=== PATIENT | female | born 1955 | race Caucasian/White ===

== ENCOUNTER 2017-04-03 13:32 | Inpatient (IN) | payer BC ==
[~2017-04-03] VITALS: Ht 167.6 cm; Wt 147.3 kg
[~2017-04-03 13:32] MED LIST: ERGO500017 PO; ESCI20TA PO; FURO20TA3 PO; LORA1TAB PO; LOSA100T6 PO; MILK THISTLE PO; SILD20TA2 PO
[2017-04-03] MEDS ORDERED: SODIUM CHLORIDE FLUSH 10ML SYR IVF ONE (14:00)
[2017-04-03] MEDS ORDERED: MAALOX/HYOSCYAMINE/LIDOCAINE 45 ML BOTTLE PO ONE (14:30)
[2017-04-03] MEDS ORDERED: MAALOX/HYOSCYAMINE/LIDOCAINE 45 ML BOTTLE ONE (14:34)
[2017-04-03 14:49] LABS: BLOOD UREA NITROGEN 15 mg/dL (7-18)
[2017-04-03 14:54] LABS: ASPARTATE AMINO TRANSFERASE 130 U/L (15-37)
[2017-04-03 14:56] LABS: IS PT STATUS REG ER OR PRE ER? YES
[2017-04-03 15:10] LABS: DIFF TOTAL CELLS COUNTED 100 CELL DIFF
[2017-04-03 15:13] LABS: LARGE PLATELETS 1+
[2017-04-03 15:14] LABS: VERIFY COUNTS? YES
[2017-04-03] MEDS ORDERED: LORazepam 2 MG/ML, 1ML ONE (16:36)
[2017-04-03] MEDS ORDERED: LORazepam 2 MG/ML, 1ML IVPush ONE (17:00)
[2017-04-03] MEDS ORDERED: OMNIPAQUE 350 MG/ML, 150 ML BOTTLE ONE (17:10)
[2017-04-03] MEDS ORDERED: DOCUSATE 100 MG CAPSULE PO PRN (19:30)
[2017-04-03] MEDS ORDERED: LABETALOL 5MG/ML 40ML VIAL IVPush PRN (19:30)
[2017-04-03] MEDS ORDERED: ACETAMINOPHEN 325 MG TABLET PO PRN (19:30)
[2017-04-03] MEDS ORDERED: PANTOPRAZOLE 40 MG IV IVPush ONE (19:30)
[2017-04-03 20:19] VITALS: BP 157/84
[2017-04-03] MEDS ORDERED: THIAMINE 200 MG in DEXTROSE 5% 50 ML IVPB ONE (20:30)
[2017-04-03] MEDS ORDERED: FOLIC ACID 1 MG TABLET PO ONE (20:30)
[2017-04-03] MEDS ORDERED: LORazepam 1MG TABLET PO PRN ×4 (20:30)
[2017-04-03] MEDS: SILDENAFIL 20 MG TABLET PO SCH (21:00)
[2017-04-03 21:18] LABS: IS PT STATUS REG ER OR PRE ER? NO
[2017-04-03] MEDS ORDERED: MAGNESIUM SULFATE PMX 4GM/100M 100 ML IV ONE (22:00)
[2017-04-03] MEDS: LORazepam 0.5MG TABLET PO PRN (22:43)
[2017-04-03] MEDS: HEPARIN 5,000 UNITS/ML, 1ML SQ SCH (23:45)
[2017-04-04 01:50] VITALS: BP 149/79
[2017-04-04 03:12] LABS: IS PT STATUS REG ER OR PRE ER? NO
[2017-04-04 06:10] LABS: BLOOD UREA NITROGEN 16 mg/dL (7-18)
[2017-04-04 07:17] VITALS: BP 130/74
[2017-04-04] MEDS: HEPARIN 5,000 UNITS/ML, 1ML SQ SCH ×3 (08:40→23:38)
[2017-04-04] MEDS: LOSARTAN 50MG TABLET PO SCH (08:41)
[2017-04-04] MEDS: CITALOPRAM 20 MG TABLET PO SCH (08:41)
[2017-04-04] MEDS: MULTIVITAMINS/MINERALS TABLET PO SCH (08:41)
[2017-04-04] MEDS: FUROSEMIDE 20 MG TABLET PO SCH (08:41)
[2017-04-04] MEDS: SILDENAFIL 20 MG TABLET PO SCH ×3 (08:42→19:44)
[2017-04-04] MEDS ORDERED: MULTIVITAMIN 1 TABLET PO SCH (09:57)
[2017-04-04] MEDS: FOLIC ACID 1 MG TABLET PO SCH (11:38)
[2017-04-04] MEDS: THIAMINE 100MG TABLET PO SCH (11:38)
[2017-04-04 12:54] VITALS: BP 137/83
[2017-04-04] MEDS: LORazepam 0.5MG TABLET PO PRN (15:07)
[2017-04-04 18:23] VITALS: BP 135/77
[2017-04-04] MEDS: TEMAZEPAM 15 MG CAPSULE PO PRN (23:45)
[2017-04-05 00:49] VITALS: BP 146/66
[2017-04-05 05:45] LABS: BLOOD UREA NITROGEN 16 mg/dL (7-18)
[2017-04-05 05:48] LABS: ASPARTATE AMINO TRANSFERASE 63 U/L (15-37)
[2017-04-05 07:47] VITALS: BP 133/77
[2017-04-05] MEDS: SILDENAFIL 20 MG TABLET PO SCH ×3 (09:07→22:10)
[2017-04-05] MEDS: HEPARIN 5,000 UNITS/ML, 1ML SQ SCH ×3 (09:08→23:38)
[2017-04-05] MEDS: LOSARTAN 50MG TABLET PO SCH (09:08)
[2017-04-05] MEDS: FOLIC ACID 1 MG TABLET PO SCH (09:08)
[2017-04-05] MEDS: MULTIVITAMINS/MINERALS TABLET PO SCH (09:08)
[2017-04-05] MEDS: THIAMINE 100MG TABLET PO SCH (09:08)
[2017-04-05] MEDS: FUROSEMIDE 20 MG TABLET PO SCH (09:08)
[2017-04-05] MEDS: CITALOPRAM 20 MG TABLET PO SCH (09:09)
[2017-04-05] MEDS ORDERED: ONDANSETRON 2MG/ML, 2ML IVPush PRN (11:00)
[2017-04-05 13:06] VITALS: BP 118/72
[2017-04-05 14:20] LABS: OCCBLD OBC PASS
[2017-04-05] MEDS: LORazepam 0.5MG TABLET PO PRN ×2 (16:46→22:16)
[2017-04-05 20:00] VITALS: BP 128/79
[2017-04-05] MEDS: TEMAZEPAM 15 MG CAPSULE PO PRN (22:10)
[2017-04-06 00:41] VITALS: BP 127/75
[2017-04-06] MEDS: TEMAZEPAM 15 MG CAPSULE PO PRN (00:45)
[2017-04-06 05:39] LABS: ASPARTATE AMINO TRANSFERASE 50 U/L (15-37); BLOOD UREA NITROGEN 17 mg/dL (7-18)
[2017-04-06 09:45] VITALS: BP 123/81
[2017-04-06] MEDS: HEPARIN 5,000 UNITS/ML, 1ML SQ SCH ×2 (09:46→15:33)
[2017-04-06] MEDS: LOSARTAN 50MG TABLET PO SCH (09:46)
[2017-04-06] MEDS: CITALOPRAM 20 MG TABLET PO SCH (09:47)
[2017-04-06] MEDS: MULTIVITAMINS/MINERALS TABLET PO SCH (09:48)
[2017-04-06] MEDS: SILDENAFIL 20 MG TABLET PO SCH ×2 (09:48→15:33)
[2017-04-06] MEDS: FOLIC ACID 1 MG TABLET PO SCH (09:48)
[2017-04-06] MEDS: FUROSEMIDE 20 MG TABLET PO SCH (09:48)
[2017-04-06] MEDS: THIAMINE 100MG TABLET PO SCH (09:48)
[2017-04-06 15:06] VITALS: BP 109/69
[2017-04-06] MEDS ORDERED: FOLI-17 PO (17:20)
[2017-04-06] MEDS ORDERED: THIA100T6 PO (17:20)
[2017-04-06] MEDS ORDERED: MULT-484 PO (17:20)
[2017-04-06] MEDS ORDERED: OMEP-110 PO (17:24)
== END 2017-04-06 20:21 | disposition home or self-care (01) | DRG 189 ==
LOC: ED 18:00 → EDIP 18:04 → ED 18:44 → 5SO 20:00
PROVIDERS: ADMIT Internal Medicine; ATTEND Internal Medicine
PROC: 5A09357 Assistance with Respiratory Ventilation, Less than 24 Consecutive Hours, Continuous Positive Airway Pressure (ICD-10-PCS; principal; 2017-04-03)
DX: J96.21 Acute and chronic respiratory failure with hypoxia (principal); E44.0 Moderate protein-calorie malnutrition; K50.90 Crohn's disease, unspecified, without complications; Z68.43 Body mass index [BMI] 50.0-59.9, adult; K21.9 Gastro-esophageal reflux disease without esophagitis; I11.9 Hypertensive heart disease without heart failure; I27.2 Other secondary pulmonary hypertension; D69.6 Thrombocytopenia, unspecified; F10.20 Alcohol dependence, uncomplicated; E66.01 Morbid (severe) obesity due to excess calories; E83.52 Hypercalcemia; G47.33 Obstructive sleep apnea (adult) (pediatric); R73.03 Prediabetes; D53.9 Nutritional anemia, unspecified; F32.9 Major depressive disorder, single episode, unspecified; G89.29 Other chronic pain; J84.10 Pulmonary fibrosis, unspecified; M19.90 Unspecified osteoarthritis, unspecified site; Z77.22 Contact with and (suspected) exposure to environmental tobacco smoke (acute) (chronic); Z99.81 Dependence on supplemental oxygen; Z90.710 Acquired absence of both cervix and uterus; Z98.84 Bariatric surgery status; Z90.49 Acquired absence of other specified parts of digestive tract; Z81.1 Family history of alcohol abuse and dependence; Z79.899 Other long term (current) drug therapy
CPT/HCPCS: 36415; 71010; 71275; 80048; 80053; 80076; 82272; 82330; 82607; 82746; 83036; 83735; 83880; 83970; 84439; 84443; 84484; 85025; 85379; 85610; 85730; 93005; 93306; 94660; 96374; J1644; J2405; J3411; Q9967; C9113; J2060; J3475

== ENCOUNTER → 2017-05-24 | Outpatient (CLI) | payer BC ==
[~2017-05-24] MED LIST changes: +FOLI-17 PO; +MULT-484 PO; +OMEP-110 PO; +THIA100T6 PO
== END | disposition home or self-care (01) ==
LOC: CVU 15:42
PROVIDERS: ATTEND Internal Medicine Critical Care Medicine
DX: I35.0 Nonrheumatic aortic (valve) stenosis (principal); I51.7 Cardiomegaly; I10 Essential (primary) hypertension
CPT/HCPCS: 93306

== ENCOUNTER → 2017-06-12 | Outpatient (CLI) | payer BC | END | disposition home or self-care (01) | LOC: CFH 10:43 | PROVIDERS: ATTEND Registered Nurse Registered Nurse First Assistant | DX: M51.36 Other intervertebral disc degeneration, lumbar region (principal); G89.29 Other chronic pain | CPT/HCPCS: 72110 ==

== ENCOUNTER 2017-07-20 13:43 | Inpatient (IN) | payer BC ==
[~2017-07-20] VITALS: Ht 170.2 cm; Wt 138.0 kg
[2017-07-20] MEDS ORDERED: SODIUM CHLORIDE FLUSH 10ML SYR IVF ONE (15:00)
[2017-07-20 15:08] LABS: HEMATOCRIT 37.4 % (34.6-47.8); HEMOGLOBIN 12.6 g/dL (11.7-16.4); WHITE BLOOD COUNT 7.1 x10^3/uL (3.4-10)
[2017-07-20 15:21] LABS: ASPARTATE AMINO TRANSFERASE 49 U/L (15-37); BLOOD UREA NITROGEN 21 mg/dL (7-18)
[2017-07-20 15:27] LABS: IS PT STATUS REG ER OR PRE ER? YES
[2017-07-20] MEDS ORDERED: OMNIPAQUE 350 MG/ML, 100ML BOTTLE ONE (16:23)
[2017-07-20] MEDS ORDERED: FURO20TA3 PO (17:00)
[2017-07-20] MEDS ORDERED: FUROSEMIDE 40 MG/4 ML IV ONE (17:00)
[2017-07-20] MEDS ORDERED: ENALAPRILAT 1.25 MG/ML, 2ML IV ONE (17:00)
[2017-07-20] MEDS ORDERED: FUROSEMIDE 40 MG/4 ML ONE (17:02)
[2017-07-20] MEDS ORDERED: ENALAPRILAT 1.25 MG/ML, 2ML ONE (17:02)
[2017-07-20] MEDS ORDERED: DOCUSATE 100 MG CAPSULE PO PRN (18:00)
[2017-07-20] MEDS ORDERED: POLYETHYLENE GLYCOL 17 GM PACKET PO PRN (18:00)
[2017-07-20] MEDS ORDERED: ENALAPRILAT 1.25 MG/ML, 2ML IV PRN (18:00)
[2017-07-20] MEDS ORDERED: BISACODYL 10 MG SUPP PR PRN (18:00)
[2017-07-20] MEDS ORDERED: ONDANSETRON ODT 4 MG PO PRN (18:00)
[2017-07-20] MEDS ORDERED: ONDANSETRON 2MG/ML, 2ML IVPush PRN (18:00)
[2017-07-20 18:30] VITALS: BP 182/86
[2017-07-20] MEDS ORDERED: LORazepam 1MG TABLET ONE ×3 (18:54→22:53)
[2017-07-20] MEDS: LORazepam 0.5MG TABLET PO PRN ×3 (18:59→22:55)
[2017-07-20] MEDS: SILDENAFIL 20 MG TABLET PO SCH ×2 (21:54→22:00)
[2017-07-20] MEDS: LOSARTAN 50MG TABLET PO SCH (21:54)
[2017-07-20] MEDS: ENOXAPARIN 40 MG/0.4 ML SQ SCH (21:54)
[2017-07-20] MEDS: SODIUM CHLORIDE NASAL SPRAY 45ML BOTTLE NAS SCH (21:59)
[2017-07-21] MEDS ORDERED: METHOCARBAMOL 750 MG TABLET PO ONE (01:00)
[2017-07-21 04:08] VITALS: BP 140/78
[2017-07-21 05:01] LABS: HEMATOCRIT 38.3 % (34.6-47.8); WHITE BLOOD COUNT 8.6 x10^3/uL (3.4-10)
[2017-07-21 05:02] LABS: BLOOD UREA NITROGEN 24 mg/dL (7-18)
[2017-07-21 05:05] LABS: ASPARTATE AMINO TRANSFERASE 42 U/L (15-37)
[2017-07-21 06:42] VITALS: BP 162/86
[2017-07-21 08:02] VITALS: BP 132/77
[2017-07-21] MEDS ORDERED: TEMPLATE NON-FORMULARY MED. (Losartan Potassium** 100 MG) PO SCH (09:00)
[2017-07-21] MEDS: SILDENAFIL 20 MG TABLET PO SCH ×3 (09:00→21:37)
[2017-07-21] MEDS: SODIUM CHLORIDE NASAL SPRAY 45ML BOTTLE NAS SCH ×2 (10:03→21:15)
[2017-07-21] MEDS: FUROSEMIDE 40 MG/4 ML IV SCH (10:03)
[2017-07-21] MEDS: FOLIC ACID 1 MG TABLET PO SCH (10:04)
[2017-07-21] MEDS: CITALOPRAM 20 MG TABLET PO SCH (10:04)
[2017-07-21] MEDS: OMEPRAZOLE 20 MG CAPSULE.DR PO SCH (10:04)
[2017-07-21] MEDS: LOSARTAN 50MG TABLET PO SCH ×2 (10:04→15:29)
[2017-07-21] MEDS: THIAMINE 100MG TABLET PO SCH (10:04)
[2017-07-21] MEDS: LORazepam 0.5MG TABLET PO PRN ×3 (10:05→18:38)
[2017-07-21] MEDS: AMLODIPINE 5 MG TABLET PO SCH (14:00)
[2017-07-21] MEDS: CALCIUM CARBONATE 500 MG TAB.CHEW PO SCH ×2 (15:28→21:15)
[2017-07-21 15:32] VITALS: BP 144/77
[2017-07-21 19:01] VITALS: BP 148/80
[2017-07-21] MEDS: TEMAZEPAM 30 MG CAPSULE PO PRN (21:15)
[2017-07-21] MEDS: ACETAMINOPHEN 325 MG TABLET PO PRN (21:15)
[2017-07-21] MEDS: ENOXAPARIN 40 MG/0.4 ML SQ SCH (21:15)
[2017-07-22 00:50] VITALS: BP 145/79
[2017-07-22] MEDS: CALCIUM CARBONATE 500 MG TAB.CHEW PO SCH ×4 (05:22→20:59)
[2017-07-22 06:50] VITALS: BP 127/73
[2017-07-22] MEDS: FUROSEMIDE 40 MG/4 ML IV SCH (09:39)
[2017-07-22] MEDS: SODIUM CHLORIDE NASAL SPRAY 45ML BOTTLE NAS SCH ×2 (09:39→20:59)
[2017-07-22] MEDS: ACETAMINOPHEN 325 MG TABLET PO PRN ×2 (09:39→16:08)
[2017-07-22] MEDS: THIAMINE 100MG TABLET PO SCH (09:40)
[2017-07-22] MEDS: CITALOPRAM 20 MG TABLET PO SCH (09:40)
[2017-07-22] MEDS: LOSARTAN 50MG TABLET PO SCH (09:41)
[2017-07-22] MEDS: SILDENAFIL 20 MG TABLET PO SCH ×3 (09:42→21:00)
[2017-07-22] MEDS: AMLODIPINE 5 MG TABLET PO SCH (09:43)
[2017-07-22] MEDS: OMEPRAZOLE 20 MG CAPSULE.DR PO SCH (09:43)
[2017-07-22] MEDS: FOLIC ACID 1 MG TABLET PO SCH (09:44)
[2017-07-22] MEDS: ENOXAPARIN 40 MG/0.4 ML SQ SCH (09:44)
[2017-07-22 13:01] VITALS: BP 144/81
[2017-07-22] MEDS: SPIRONOLACTONE 25 MG TABLET PO SCH (16:07)
[2017-07-22] MEDS: CARVEDILOL 6.25 MG TABLET PO SCH (18:16)
[2017-07-22] MEDS: LORazepam 0.5MG TABLET PO PRN (18:16)
[2017-07-22 18:48] VITALS: BP 123/70
[2017-07-22] MEDS: ATORVASTATIN 40 MG TABLET PO SCH (20:59)
[2017-07-22] MEDS: TEMAZEPAM 30 MG CAPSULE PO PRN (21:00)
[2017-07-23 03:33] VITALS: BP 127/59
[2017-07-23 06:01] LABS: ASPARTATE AMINO TRANSFERASE 44 U/L (15-37); BLOOD UREA NITROGEN 35 mg/dL (7-18)
[2017-07-23 06:11] LABS: DIFF TOTAL CELLS COUNTED 100 CELL DIFF; HEMATOCRIT 37.5 % (34.6-47.8); HEMOGLOBIN 12.8 g/dL (11.7-16.4); WHITE BLOOD COUNT 9.4 x10^3/uL (3.4-10)
[2017-07-23 06:14] LABS: VERIFY COUNTS? YES
[2017-07-23 06:15] LABS: ANISOCYTOSIS 1+; POLYCHROMASIA 1+
[2017-07-23] MEDS: CARVEDILOL 6.25 MG TABLET PO SCH ×2 (06:29→18:42)
[2017-07-23] MEDS: CALCIUM CARBONATE 500 MG TAB.CHEW PO SCH ×4 (06:29→20:21)
[2017-07-23 07:59] VITALS: BP 116/53
[2017-07-23] MEDS: OMEPRAZOLE 20 MG CAPSULE.DR PO SCH (08:02)
[2017-07-23] MEDS: SILDENAFIL 20 MG TABLET PO SCH ×3 (09:00→20:22)
[2017-07-23] MEDS: THIAMINE 100MG TABLET PO SCH (09:22)
[2017-07-23] MEDS: CITALOPRAM 20 MG TABLET PO SCH (09:22)
[2017-07-23] MEDS: AMLODIPINE 5 MG TABLET PO SCH (09:23)
[2017-07-23] MEDS: FOLIC ACID 1 MG TABLET PO SCH (09:23)
[2017-07-23] MEDS: FUROSEMIDE 40 MG/4 ML IV SCH (09:23)
[2017-07-23] MEDS: SPIRONOLACTONE 25 MG TABLET PO SCH (09:24)
[2017-07-23] MEDS: SODIUM CHLORIDE NASAL SPRAY 45ML BOTTLE NAS SCH ×2 (09:24→20:21)
[2017-07-23 14:03] VITALS: BP 111/59
[2017-07-23] MEDS: LORazepam 0.5MG TABLET PO PRN ×2 (15:24→23:25)
[2017-07-23 18:50] VITALS: BP 119/59
[2017-07-23] MEDS: TEMAZEPAM 30 MG CAPSULE PO PRN (20:21)
[2017-07-23] MEDS: ATORVASTATIN 40 MG TABLET PO SCH (20:21)
[2017-07-23] MEDS: ENOXAPARIN 40 MG/0.4 ML SQ SCH (20:21)
[2017-07-24 02:00] VITALS: BP 105/58
[2017-07-24 05:55] LABS: HEMATOCRIT 37.9 % (34.6-47.8); HEMOGLOBIN 12.9 g/dL (11.7-16.4); WHITE BLOOD COUNT 9.1 x10^3/uL (3.4-10)
[2017-07-24 06:00] LABS: BLOOD UREA NITROGEN 35 mg/dL (7-18)
[2017-07-24 06:02] VITALS: BP 124/71
[2017-07-24] MEDS: CARVEDILOL 6.25 MG TABLET PO SCH (06:03)
[2017-07-24] MEDS: CALCIUM CARBONATE 500 MG TAB.CHEW PO SCH (06:04)
[2017-07-24 08:40] VITALS: BP 106/60
[2017-07-24] MEDS: FUROSEMIDE 40 MG/4 ML IV SCH (09:00)
[2017-07-24] MEDS: SILDENAFIL 20 MG TABLET PO SCH (09:00)
[2017-07-24] MEDS: AMLODIPINE 5 MG TABLET PO SCH (09:21)
[2017-07-24] MEDS: CITALOPRAM 20 MG TABLET PO SCH (09:22)
[2017-07-24] MEDS: OMEPRAZOLE 20 MG CAPSULE.DR PO SCH (09:22)
[2017-07-24] MEDS: FOLIC ACID 1 MG TABLET PO SCH (09:24)
[2017-07-24] MEDS: SPIRONOLACTONE 25 MG TABLET PO SCH (09:24)
[2017-07-24] MEDS: LOSARTAN 50MG TABLET PO SCH (09:24)
[2017-07-24] MEDS: THIAMINE 100MG TABLET PO SCH (09:25)
[2017-07-24] MEDS: SODIUM CHLORIDE NASAL SPRAY 45ML BOTTLE NAS SCH (09:25)
[2017-07-24] MEDS ORDERED: AMLO5TAB2 PO (10:53)
[2017-07-24] MEDS ORDERED: ATOR40TA78 PO (10:53)
[2017-07-24] MEDS ORDERED: SPIR25TA PO (10:53)
[2017-07-24] MEDS ORDERED: CARV6.2512 PO (10:53)
[2017-07-24] MEDS ORDERED: FURO40TA6 PO (10:53)
== END 2017-07-24 12:34 | disposition home or self-care (01) | DRG 291 ==
LOC: ED 16:44 → EDIP 16:45 → ED 16:54 → 4EST 18:22 → DCLOUNGE 07-24 12:10
PROVIDERS: ADMIT Hospitalist; ATTEND Internal Medicine
DX: I11.0 Hypertensive heart disease with heart failure (principal); J96.21 Acute and chronic respiratory failure with hypoxia; D69.6 Thrombocytopenia, unspecified; I27.2 Other secondary pulmonary hypertension; E44.1 Mild protein-calorie malnutrition; K50.90 Crohn's disease, unspecified, without complications; Z68.42 Body mass index [BMI] 45.0-49.9, adult; J98.11 Atelectasis; I50.33 Acute on chronic diastolic (congestive) heart failure; E66.01 Morbid (severe) obesity due to excess calories; D75.89 Other specified diseases of blood and blood-forming organs; E74.39 Other disorders of intestinal carbohydrate absorption; F10.10 Alcohol abuse, uncomplicated; F32.9 Major depressive disorder, single episode, unspecified; F41.0 Panic disorder [episodic paroxysmal anxiety]; G47.33 Obstructive sleep apnea (adult) (pediatric); I25.10 Atherosclerotic heart disease of native coronary artery without angina pectoris; K21.9 Gastro-esophageal reflux disease without esophagitis; K76.89 Other specified diseases of liver; Z87.891 Personal history of nicotine dependence
CPT/HCPCS: 36415; 71010; 71275; 80048; 80053; 80061; 82607; 82746; 83735; 83880; 84100; 84443; 84484; 85025; 85610; 87070; 87205; 93005; 96374; 96375; J1650; J1940; Q9967

== ENCOUNTER 2017-08-16 16:49 | Inpatient (IN) | payer BC ==
[~2017-08-16] VITALS: Ht 170.2 cm; Wt 142.7 kg
[~2017-08-16 16:49] MED LIST changes: +AMLO5TAB2 PO; +ATOR40TA78 PO; +CARV6.2512 PO; +FURO40TA6 PO; +SPIR25TA PO
[2017-08-16] MEDS ORDERED: CEFTRIAXONE PMX 2GM/50ML 50 ML IV SCH (17:30)
[2017-08-16] MEDS ORDERED: SODIUM CHLORIDE 0.9% 1,000ML IVBOLUS ONE ×2 (17:30→19:30)
[2017-08-16] MEDS ORDERED: CEFTRIAXONE PMX 2GM/50ML 50 ML ONE (17:43)
[2017-08-16 18:05] LABS: ASPARTATE AMINO TRANSFERASE 37 U/L (15-37); BLOOD UREA NITROGEN 99 mg/dL (7-18)
[2017-08-16 18:49] LABS: HEMATOCRIT 32.2 % (34.6-47.8); HEMOGLOBIN 11.1 g/dL (11.7-16.4); WHITE BLOOD COUNT 6.3 x10^3/uL (3.4-10)
[2017-08-16 18:51] LABS: DIFF TOTAL CELLS COUNTED 100 CELL DIFF
[2017-08-16 18:56] LABS: VERIFY COUNTS? YES
[2017-08-16] MEDS ORDERED: SODIUM CHLORIDE 0.9% 1,000 ML IV ONE (19:30)
[2017-08-16] MEDS: SILDENAFIL 20 MG TABLET PO SCH (21:00)
[2017-08-16] MEDS ORDERED: BISACODYL 10 MG SUPP PR PRN (21:00)
[2017-08-16] MEDS ORDERED: morphine SULFATE 10 MG/ML, 1ML IVPush PRN (21:00)
[2017-08-16] MEDS ORDERED: DOCUSATE 100 MG CAPSULE PO PRN (21:00)
[2017-08-16] MEDS: ATORVASTATIN 40 MG TABLET PO SCH (22:40)
[2017-08-16] MEDS: SODIUM CHLORIDE 0.9% 1,000 ML IV SCH (22:40)
[2017-08-16] MEDS: TEMAZEPAM 15 MG CAPSULE PO PRN (23:07)
[2017-08-17 01:02] VITALS: BP 71/45
[2017-08-17] MEDS ORDERED: SODIUM CHLORIDE 0.9%, 250ML IVBOLUS ONE ×2 (01:30→04:00)
[2017-08-17 02:15] VITALS: BP 116/76
[2017-08-17] MEDS: ACETAMINOPHEN 325 MG TABLET PO PRN ×3 (03:48→12:24)
[2017-08-17 04:25] VITALS: BP 121/79
[2017-08-17 05:44] LABS: HEMATOCRIT 28.4 % (34.6-47.8); HEMOGLOBIN 9.8 g/dL (11.7-16.4); WHITE BLOOD COUNT 6.9 x10^3/uL (3.4-10)
[2017-08-17] MEDS: CARVEDILOL 6.25 MG TABLET PO SCH ×2 (06:00→18:02)
[2017-08-17 06:35] LABS: ASPARTATE AMINO TRANSFERASE 29 U/L (15-37); BLOOD UREA NITROGEN 97 mg/dL (7-18)
[2017-08-17 07:32] VITALS: BP 107/66
[2017-08-17] MEDS: SILDENAFIL 20 MG TABLET PO SCH ×3 (09:00→19:48)
[2017-08-17] MEDS: CITALOPRAM 20 MG TABLET PO SCH (09:16)
[2017-08-17] MEDS: AMLODIPINE 5 MG TABLET PO SCH (09:16)
[2017-08-17] MEDS: ONDANSETRON 2MG/ML, 2ML IVPush PRN ×2 (11:19→22:56)
[2017-08-17 14:12] VITALS: BP 111/68
[2017-08-17] MEDS: SODIUM CHLORIDE 0.9% 1,000 ML IV SCH (15:00)
[2017-08-17] MEDS ORDERED: PROMETHAZINE 25 MG/ML, 1ML IM PRN (16:00)
[2017-08-17] MEDS ORDERED: KETOROLAC 30 MG/1 ML IVPush ONE ×2 (17:00→17:30)
[2017-08-17 18:28] LABS: POTASSIUM,URINE RANDOM 18 mmol/L
[2017-08-17 19:24] VITALS: BP 98/62
[2017-08-17] MEDS: ATORVASTATIN 40 MG TABLET PO SCH (19:47)
[2017-08-17] MEDS: POLYETHYLENE GLYCOL 17 GM PACKET PO PRN (21:43)
[2017-08-17] MEDS: TEMAZEPAM 15 MG CAPSULE PO PRN (22:56)
[2017-08-18 00:35] VITALS: BP 96/56
[2017-08-18 05:38] LABS: HEMATOCRIT 28.1 % (34.6-47.8); HEMOGLOBIN 9.7 g/dL (11.7-16.4); WHITE BLOOD COUNT 4.8 x10^3/uL (3.4-10)
[2017-08-18 05:43] LABS: BLOOD UREA NITROGEN 75 mg/dL (7-18)
[2017-08-18] MEDS: CARVEDILOL 6.25 MG TABLET PO SCH ×2 (05:48→17:28)
[2017-08-18] MEDS: SODIUM CHLORIDE 0.9% 1,000 ML IV SCH ×2 (06:00→15:12)
[2017-08-18 08:15] VITALS: BP 109/59
[2017-08-18] MEDS: AMLODIPINE 5 MG TABLET PO SCH (09:00)
[2017-08-18] MEDS: CITALOPRAM 20 MG TABLET PO SCH (10:11)
[2017-08-18] MEDS: ACETAMINOPHEN 325 MG TABLET PO PRN (11:15)
[2017-08-18] MEDS: SILDENAFIL 20 MG TABLET PO SCH ×3 (11:48→21:00)
[2017-08-18] MEDS ORDERED: CEFTRIAXONE PMX 1GM/50ML 50 ML IV SCH (13:30)
[2017-08-18] MEDS ORDERED: SODIUM CHLORIDE NASAL SPRAY 45ML BOTTLE NAS PRN (14:00)
[2017-08-18] MEDS ORDERED: CALCIUM CARBONATE 500 MG TAB.CHEW PO PRN (14:00)
[2017-08-18 14:56] VITALS: BP 109/69
[2017-08-18] MEDS: POLYETHYLENE GLYCOL 17 GM PACKET PO PRN (17:47)
[2017-08-18 19:21] VITALS: BP 109/71
[2017-08-18] MEDS ORDERED: BISACODYL 10 MG SUPP PR PRN (20:00)
[2017-08-18] MEDS ORDERED: DOCUSATE 100 MG CAPSULE PO PRN (20:00)
[2017-08-18] MEDS ORDERED: morphine SULFATE 10 MG/ML, 1ML IVPush PRN (20:00)
[2017-08-18] MEDS ORDERED: LORazepam 0.5MG TABLET PO PRN (21:00)
[2017-08-18] MEDS ORDERED: LORazepam 1MG TABLET ONE (21:07)
[2017-08-18] MEDS: TEMAZEPAM 15 MG CAPSULE PO PRN (21:24)
[2017-08-18] MEDS: ATORVASTATIN 40 MG TABLET PO SCH (21:24)
[2017-08-19 01:32] VITALS: BP 117/71
[2017-08-19] MEDS: CARVEDILOL 6.25 MG TABLET PO SCH (04:34)
[2017-08-19 05:06] LABS: HEMATOCRIT 28.7 % (34.6-47.8); HEMOGLOBIN 9.9 g/dL (11.7-16.4); WHITE BLOOD COUNT 4.8 x10^3/uL (3.4-10)
[2017-08-19] MEDS: SODIUM CHLORIDE 0.9% 1,000 ML IV SCH ×2 (05:08→12:00)
[2017-08-19 05:10] LABS: BLOOD UREA NITROGEN 49 mg/dL (7-18)
[2017-08-19 08:30] VITALS: BP 124/87
[2017-08-19] MEDS: CITALOPRAM 20 MG TABLET PO SCH (09:00)
[2017-08-19] MEDS: SILDENAFIL 20 MG TABLET PO SCH (09:00)
[2017-08-19] MEDS: ACETAMINOPHEN 325 MG TABLET PO PRN (09:31)
[2017-08-19] MEDS ORDERED: LIDOCAINE 2%, 2ML INFIL ONE (11:30)
[2017-08-19] MEDS ORDERED: CEFTRIAXONE 1,000 MG IM ONE ×2 (11:30→12:30)
[2017-08-19] MEDS ORDERED: FLU VACC QS2017-18 (36MOS+) UP/PF 0.5 ML IM-VACC ONE (11:30)
== END 2017-08-19 13:50 | disposition home or self-care (01) | DRG 683 ==
LOC: ED 18:41 → EDIP 19:16 → 4EST 20:53
PROVIDERS: ADMIT Hospitalist; ATTEND Hospitalist
DX: N17.9 Acute kidney failure, unspecified (principal); N39.0 Urinary tract infection, site not specified; J96.10 Chronic respiratory failure, unspecified whether with hypoxia or hypercapnia; D69.6 Thrombocytopenia, unspecified; I11.0 Hypertensive heart disease with heart failure; I95.9 Hypotension, unspecified; E66.01 Morbid (severe) obesity due to excess calories; E87.5 Hyperkalemia; I50.32 Chronic diastolic (congestive) heart failure; Z68.42 Body mass index [BMI] 45.0-49.9, adult; I27.20 Pulmonary hypertension, unspecified; E86.9 Volume depletion, unspecified; B96.20 Unspecified Escherichia coli [E. coli] as the cause of diseases classified elsewhere; D53.9 Nutritional anemia, unspecified; G47.10 Hypersomnia, unspecified; G47.33 Obstructive sleep apnea (adult) (pediatric); K21.9 Gastro-esophageal reflux disease without esophagitis; Z79.899 Other long term (current) drug therapy; Z87.440 Personal history of urinary (tract) infections; Z99.81 Dependence on supplemental oxygen
CPT/HCPCS: 36415; 71010; 76770; 80048; 80053; 80069; 81001; 82436; 82570; 83605; 83735; 83880; 84100; 84133; 84145; 84300; 85025; 87040; 87086; 90686; 93005; 96365; J0696; J1885; J2405; J2550; J2270; J7030; J7050